=== PATIENT | female | born 2005 | race Caucasian/White ===

== ENCOUNTER 2025-02-19 19:19 | Emergency (ER) | payer SELFPAY ==
[2025-02-19 19:22] VITALS: BP 129/74; PULSE 98; RESP 14; TEMP 36.7; O2SAT 99; BMI 27.1
== END 2025-02-19 22:19 | disposition left against medical advice (07) ==
PROVIDERS: Emergency Provider Emergency Medicine
DX: S09.90XA Unspecified injury of head, initial encounter (principal)
CPT/HCPCS: 99281